=== PATIENT | female | born 1965 | race African-American/Black ===

== ENCOUNTER 2018-05-22 04:58 | Day surgery (SDC) | payer BC ==
[2018-05-12 15:07] VITALS: BMI 30.8
[2018-05-22 09:18] VITALS: PULSE 83
[2018-05-22 09:19] VITALS: BP 181/112
== END 2018-05-22 09:32 | disposition home or self-care (01) ==
LOC: JASU-SURG 04:58
PROVIDERS: ATTEND Surgery
PROC: 0GBJ0ZZ Excision of Thyroid Gland Isthmus, Open Approach (ICD-10-PCS; principal; 2018-05-22)
DX: Z53.8 Procedure and treatment not carried out for other reasons (principal)
CPT/HCPCS: 36415; 84703